=== PATIENT | male | born 1975 | race Hispanic/Latino ===

== ENCOUNTER 2024-05-11 10:13 | Day surgery (SDC) | payer OTHER ==
[~2024-05-11] VITALS: Ht 182.9 cm; Wt 99.8 kg
[2024-05-11] MEDS ORDERED: ceFAZolin Sodium 2 GM/VIAL SDV ONE (10:16)
[2024-05-11] MEDS ORDERED: SODIUM CHLORIDE 0.9% 100 ML IV ONE (10:16)
[2024-05-11] MEDS ORDERED: FAMOTIDINE 10MG/ML 2ML SDV IV ONE (10:16)
[2024-05-11] MEDS ORDERED: LACTATED RINGER'S 1,000 ML IV ONE ×2 (10:17→11:43)
[2024-05-11] MEDS ORDERED: LIDOcaine HCl 1% (Local Anesth.) 20 ML VIAL ONE (10:56)
[2024-05-11] MEDS ORDERED: STERILE WATER FOR IRRIGATION 1,000 ML BTL IR ONE (10:56)
[2024-05-11] MEDS ORDERED: SODIUM CHLORIDE 1,000 ML BTL IR ONE (10:56)
[2024-05-11] MEDS ORDERED: PERCOCET 5/325M1 TAB PO (12:20)
[2024-05-11] MEDS ORDERED: ACETAMINOPHEN 100 ML IV ONE (12:34)
[2024-05-11 13:20] VITALS: BP 126/88
[2024-05-11] MEDS ORDERED: PROPOFOL 200 MG/20 ML VIAL IV ONE (14:35)
[2024-05-11] MEDS ORDERED: LIDOCAINE HCL 2% 2ML SDV IV ONE (14:35)
== END 2024-05-11 13:20 | disposition home or self-care (01) | DRG 355 ==
LOC: ORM 10:13 → ENDO 10:13 → ORM 11:15
PROVIDERS: ATTEND Surgery
PROC: 0WQF0ZZ Repair Abdominal Wall, Open Approach (ICD-10-PCS; principal; 2024-05-11)
DX: K42.9 Umbilical hernia without obstruction or gangrene (principal)
CPT/HCPCS: J0131; J0690